=== PATIENT | female | born 1965 | race Caucasian/White ===

== ENCOUNTER 2020-09-03 16:54 | Emergency (ER) | payer BC, MEDICARE, SELFPAY ==
--- NOTE | 2020-09-03 16:56 | ED.URI ---
HPI - URI/Sore Throat General Chief Complaint: Upper Respiratory Infection Stated Complaint: SINUS CONGESTION Time Seen by Provider: 09/03/20 16:57 Source: patient and RN notes reviewed History of Present Illness HPI Narrative: Patient is a 54-year-old female who presents the urgent care with complaints of sinus congestion, cough, headache and nausea. Patient states that she has not vomited a couple times in the last 2 days due to the headache and the coughing fits. Patient states that she gets this sinus congestion and cough every fall and spring and her doctor typically puts her on an antibiotic and steroids . Patient states that she has been using Mucinex DM as well as Heather without much improvement. Patient states she is only taken the Heather for the past 24 hours. Patient denies any fevers, abdominal pain, shortness of breath or chest pain. Denies of any known exposure to Covid and no one else in the home has been ill. No other acute complaints. No acute distress noted with the exception of persistent cough. Patient aware of the plan of care. Some parts of this dictation were generated by voice recognition software and may contain typographical and/or grammatical inaccuracies. Related Data Home Medications Medication Instructions Recorded Confirmed estradiol 1 patch TRANSDERMAL USEASDIRECTD 09/03/20 09/03/20 Allergies Allergy/AdvReac Type Severity Reaction Status Date / Time metaxalone [From Skelaxin] Allergy Fainting Verified 09/03/20 17:04 codeine AdvReac Vomiting Verified 09/03/20 17:04 Review of Systems Review of Systems: Narrative: CONSTITUTIONAL: Denies fever, chills, or sweats. EYES: Denies visual changes, redness, or discharge. ENT: Denies rhinorrhea, congestion, sore throat, or otalgia. Reports of sinus congestion CARDIOVASCULAR: Denies chest pain, palpitations, or edema. RESPIRATORY: Reports of persistent harsh cough without shortness of breath GASTROINTESTINAL: Reports of intermittent nausea with 2 episodes of vomiting GENITOURINARY: Denies dysuria or hematuria. SKIN: Denies rash or itching. MUSCULOSKELETAL: Denies back pain, joint pain, or myalgia. NEUROLOGIC: Reports of intermittent headaches All other systems reviewed are negative, except as documented in HPI. PMFSH Comments At the time of my signature, I reviewed and agree with the nursing past medical, surgical, social, and family history. There is no relevant family history pertinent to the patient complaint. Exam Narrative: Exam Narrative: GENERAL: This is a well-nourished, well-developed patient, in no apparent distress. HEAD: normocephalic, atraumatic. Frontal sinus tenderness EYES: PERRL. Sclera clear/white. Vision is grossly intact. EARS: External ears normal, auditory canals clear and without drainage, TMs normal without perforation. Hearing grossly intact. NOSE: External nose normal with no obvious nasal discharge, nares without redness, no rhinorrhea. THROAT: Mucous membranes moist, posterior pharynx clear. Mild postnasal drainage NECK: Neck supple, non-tender without lymphadenopathy CARDIOVASCULAR: Regular rate and rhythm without murmurs, gallops, or rubs. RESPIRATORY: Persistent dry cough throughout exam. Clear to auscultation. Breath sounds equal bilaterally. No wheezes, rales, or rhonchi. SKIN: warm, intact with no suspicious lesions or rash, good texture and turgor. NEURO: awake, alert, and oriented to person, place and time. There were no obvious focal neurologic abnormalities. EXTREMITIES: No clubbing, cyanosis, or edema. Course Vital Signs Vital signs: Vital Signs Temperature 98.0 F 09/03/20 17:02 Pulse Rate 72 09/03/20 17:02 Respiratory Rate 16 09/03/20 17:02 Blood Pressure 138/79 09/03/20 17:02 Pulse Oximetry 99 09/03/20 17:02 Temperature 98.0 F 09/03/20 17:02 Pulse Rate 72 09/03/20 17:02 Respiratory Rate 16 09/03/20 17:02 Blood Pressure 138/79 09/03/20 17:02 Pulse Oximetry 99 0
[2020-09-03 17:02] VITALS: BP 138/79; PULSE 72; RESP 16; TEMP 36.7; O2SAT 99
[2020-09-03 17:24] VITALS: BP 138/79
== END 2020-09-03 17:23 | disposition home or self-care (01) ==
PROVIDERS: Emergency Provider Nurse Practitioner Family
DX: J40 Bronchitis, not specified as acute or chronic (principal); J32.9 Chronic sinusitis, unspecified
CPT/HCPCS: 99213; G0463

== ENCOUNTER 2025-02-11 17:43 | Emergency (ER) | payer MEDICARE, SELFPAY ==
[2025-02-11 17:50] VITALS: BP 111/78; PULSE 101; RESP 16; TEMP 36.5; O2SAT 96
--- NOTE | 2025-02-11 18:35 | ED_ITS ---
HPI - URI/Sore Throat General Chief Complaint: Upper Respiratory Infection Stated Complaint: Sinus infection symptoms Time Seen by Provider: 02/11/25 18:15 Source: patient and RN notes reviewed Mode of arrival: ambulatory Limitations: no limitations History of Present Illness HPI Narrative: 59-year-old female presents Express Care complaining of headaches, sinus pressure, mucopurulent nasal drainage, congestion, cough for 2 weeks. Patient denies any fevers, body aches, chills, nausea ,vomiting, diarrhea, chest pain, difficulty breathing, abdominal pain, or any other symptoms. Patient says the symptoms are not improving. Patient denies any significant past medical history. Related Data Home Medications ?Medication ?Instructions ?Recorded ?Confirmed ?Last Taken ?Type estradiol 0.05 mg/24 hr semiweekly 1 patch transdermal USEASDIRECTD 09/03/20 09/03/20 Unknown History transdermal patch Allergies Allergy/AdvReac Type Severity Reaction Status Date / Time metaxalone (From Skelaxin) Allergy Fainting Verified 09/03/20 17:04 codeine AdvReac Vomiting Verified 09/03/20 17:04 Review of Systems Review of Systems: CONSTITUTIONAL: Denies fever, chills, body aches, or sweats. EYES: Denies visual changes, redness, or discharge. ENT: Positive for rhinorrhea, sore throat, or otalgia. Positive for sinus pressure and congestion. CARDIOVASCULAR: Denies chest pain, palpitations, or edema. RESPIRATORY: Positive for cough. Negative for dyspnea. GASTROINTESTINAL: Denies abdominal pain, nausea, vomiting, or diarrhea. GENITOURINARY: Denies dysuria or hematuria. SKIN: Denies rash or itching. MUSCULOSKELETAL: Denies back pain, joint pain, or myalgia. NEUROLOGIC: Denies headache, numbness, or weakness. PSYCHIATRIC: Denies anxiety or depression. All other systems reviewed are negative, except as documented in HPI. PMFSH Comments At the time of my signature, I reviewed and agree with the nursing past medical, surgical, social, and family history. There is no relevant family history pertinent to the patient complaint. Exam Narrative: GENERAL: This is a well-nourished, well-developed adult, in no apparent distress. They are non ill-appearing, nontoxic appearing. HEAD: normocephalic, atraumatic. EYES: Sclera clear/white. Vision is grossly intact. Conjunctiva normal bilaterally. Extraocular movements intact. EARS: External ears normal, auditory canals clear and without drainage, TMs without erythema or perforation. Hearing grossly intact. NOSE: External nose normal with no obvious nasal discharge, nasal turbinates erythematous with exudate, no rhinorrhea. Maxillary and frontal sinus tenderness to palpation. THROAT: Mucous membranes moist, posterior pharynx erythematous without exudate. Uvula is midline. Postnasal drip present. NECK: Neck supple, non-tender without lymphadenopathy, masses or thyromegaly. CARDIOVASCULAR: Regular rate and rhythm without murmurs, gallops, or rubs. RESPIRATORY: Clear to auscultation. Breath sounds equal bilaterally. No wheezes, rales, or rhonchi. Respiratory rate normal, respiratory effort nonlabored, no respiratory distress SKIN: warm, Dry, intact with no suspicious lesions or rash, good texture and turgor. NEURO: awake, alert, and oriented to person, place and time. There were no obvious focal neurologic abnormalities. EXTREMITIES: No joint tenderness, effusion, or edema noted. BACK: Nontender without deformity. Course Course Emergency Course: Portions of this record may have been created with voice recognition software Level of Care: Express Care Visit Vital Signs Vital signs: Vital Signs Temperature 97.7 F 02/11/25 17:50 Pulse Rate 101 H 02/11/25 17:50 Respiratory Rate 16 02/11/25 17:50 Blood Pressure 111/78 02/11/25 17:50 Pulse Oximetry 96 02/11/25 17:50 Oxygen Delivery Room Air 02/11/25 17:50 Temperature 97.7 F 02/11/25 17:50 Pulse Rate 101 H 02/11/25 17:50 Respiratory Rate 16 02/11/25 17:50 Blood Pressure 111/78 02/11/25 17:50 Pulse Oximetry 96 02/11/25 17:50 Oxygen Delivery Room Air 02/11/25 17:50 MDM - URI/Sore Throat MDM Narrative Medical decision making narrative: Patient likely has bacterial sinusitis given her length of symptoms. Will treat her with Augmentin. Will send a course of benzonatate tablets for cough. Discussed physical exam findings. Advised supportive measures and signs/symptoms to go to the ER. Pt is appropriate for outpt treatment and f/u. Differential Diagnosis Differential diagnosis: Likely upper respiratory infection, sinusitis, viral infection, bronchitis and pharyngitis Discharge Plan Discharge Clinical Impression: Sinusitis Qualifiers: Sinusitis location: unspecified location Chronicity: acute Recurrence: non- recurrent Qualified Code(s): J01.90 - Acute sinusitis, unspecified Patient Disposition: Home Condition: Stable Instructions: Antibiotic Form, Sinusitis (ED) Additional Instructions: Take the antibiotics as directed and complete the course even if you start to feel better. You may use a Neti pot saline rinse 3 times a day with lukewarm distilled water Continue to take Tylenol or Motrin for pain. Follow instructions on the bottle. Use a humidifier or vaporizer at night. Benzonatate tablets as needed for cough. Drink plenty of water. 8-10 glasses per day. Use flonase 2 times per day for 5 days then as needed Take mucinex 2 times per day and be sure to take with 8oz of water. Follow up with Primary provider in 3-5 days Please go to the ER if he develops any difficulty breathing, worsening symptoms, vomiting, chest pain, or any other serious concerns Patient Language: Syriac Prescriptions: New benzonatate 200 mg capsule 200 mg PO BID PRN (Reason: cough) Qty: 20 0RF amoxicillin-pot clavulanate 875-125 mg tablet 1 tablet PO Q12H 7 Days Qty: 14 0RF No Action estradiol 0.05 mg/24 hr patch semiweekly 1 patch transdermal USEASDIRECTD doxycycline monohydrate 100 mg capsule 100 mg PO BID Qty: 20 0RF methylprednisolone [Medrol ([place])] 4 mg tablets,dose pack See Rx Instructions .ROUTE .COMPLEX Qty: 21 0RF Rx Instructions: orally per package directions fluticasone propionate [Flonase Allergy Relief] 50 mcg/actuation spray,suspension 2 spray NASAL DAILY Qty: 15.8 0RF Rx Instructions: administer into each nostril codeine-guaifenesin 10-200 mg/5 mL liquid 10 ml PO Q4-6H PRN (Reason: cough) Qty: 473 0RF Follow-up/Referrals: PHYSICIAN,SHREDDING MACHINE TENDER [Primary Care Provider, Internal Medicine] Time of Disposition: 18:33
== END 2025-02-11 18:38 | disposition home or self-care (01) ==
DX: J01.90 Acute sinusitis, unspecified (principal)
CPT/HCPCS: 99213; G0463